=== PATIENT | male | born 1965 | race Asian ===

== ENCOUNTER 2019-08-08 22:45 | Emergency (ER) | payer MEDICAID ==
[~2019-08-08] VITALS: Ht 172.7 cm; Wt 107.0 kg
[2019-08-08 22:51] VITALS: Ht 172.7 cm; Wt 107.0 kg
[2019-08-09 00:23] VITALS: BP 133/85
== END 2019-08-09 00:23 | disposition home or self-care (01) ==
LOC: ED 22:45
DX: M25.462 Effusion, left knee (principal); M10.9 Gout, unspecified; I11.0 Hypertensive heart disease with heart failure; I50.9 Heart failure, unspecified

== ENCOUNTER 2020-07-26 16:34 | Emergency (ER) | payer MEDICAID ==
[~2020-07-26] VITALS: Ht 172.7 cm; Wt 107.0 kg
[2020-07-26 16:54] VITALS: Ht 172.7 cm; Wt 107.0 kg
[2020-07-26 18:23] VITALS: BP 133/82
== END 2020-07-26 18:23 | disposition home or self-care (01) ==
LOC: ED 16:34
DX: M10.072 Idiopathic gout, left ankle and foot (principal); M10.041 Idiopathic gout, right hand; I11.0 Hypertensive heart disease with heart failure; I50.9 Heart failure, unspecified; Z76.0 Encounter for issue of repeat prescription; Z88.0 Allergy status to penicillin